=== PATIENT | male | born 1955 | race African-American/Black ===

== ENCOUNTER 2018-08-01 10:37 | Emergency (ER) | payer MEDICARE, OTHER ==
[~2018-08-01] VITALS: Ht 170.2 cm; Wt 84.0 kg
[~2018-08-01 10:37] MED LIST: ASPI-1393 PO; LOSA25TA26 PO
[2018-08-01] MEDS ORDERED: KETOROLAC 60MG/2ML VIAL IM STA (11:32)
[2018-08-01] MEDS ORDERED: CYCLOBENZAPRINE 10MG TABLET PO ONE (11:45)
[2018-08-01 11:47] LABS: BASOPHILS % 0.5 % (0.0-2.0); EOSINOPHILS % 0.8 % (0.0-5.0); HEMATOCRIT. 43.3 % (42.0-52.0); HEMOGLOBIN. 14.8 g/dL (14.0-18.0); LYMPHOCYTES % 18.5 % (20.0-50.0); MEAN CORPUSCULAR HEMOGLOBIN 30.6 pg (28.0-32.0); MEAN CORPUSCULAR VOLUME 89.7 fL (80.0-94.0); MEAN PLATELET VOLUME 6.9 fl (7.4-10.4); MONOCYTES % 6.5 % (2.0-8.0); NEUTROPHILS % 73.7 % (40.0-76.0); PLATELET 245 x1000/uL (130-400); RED BLOOD CELL COUNT 4.83 mill/uL (4.7-6.1); RED CELL DISTRIBUTION WIDTH 15.1 % (11.6-14.6)
[2018-08-01 11:49] LABS: CHLORIDE 99 mEq/L (98-107)
[2018-08-01 13:06] VITALS: BP 119/80
== END 2018-08-01 13:08 | disposition home or self-care (01) ==
LOC: ER 10:37
DX: K64.4 Residual hemorrhoidal skin tags (principal); K62.5 Hemorrhage of anus and rectum; M54.30 Sciatica, unspecified side; E11.9 Type 2 diabetes mellitus without complications; I10 Essential (primary) hypertension; Z98.890 Other specified postprocedural states
CPT/HCPCS: 36415; 80053; 85025; 96372; 99283; J1885

== ENCOUNTER 2020-06-25 03:33 | Inpatient (IN) | payer MEDICARE, OTHER ==
[~2020-06-25] VITALS: Ht 170.2 cm; Wt 83.0 kg
[~2020-06-25 03:33] MED LIST changes: -ASPI-1393 PO; +ASPI-1497 PO
[2020-06-25 04:14] LABS: BASOPHILS % 0.6 % (0.0-2.0); EOSINOPHILS % 0.7 % (0.0-5.0); HEMATOCRIT. 45.8 % (42.0-52.0); HEMOGLOBIN. 15.5 g/dL (14.0-18.0); LYMPHOCYTES % 33.8 % (20.0-50.0); MEAN CORPUSCULAR VOLUME 91.7 fL (80.0-94.0); MONOCYTES % 7.1 % (2.0-8.0); NEUTROPHILS % 57.8 % (40.0-76.0); PLATELET 235 x1000/uL (130-400); RED BLOOD CELL COUNT 4.99 mill/uL (4.7-6.1); RED CELL DISTRIBUTION WIDTH 15.4 % (11.6-14.6)
[2020-06-25 04:16] LABS: CHLORIDE 100 mEq/L (98-107)
[2020-06-25] MEDS ORDERED: POTASSIUM CHLORIDE INJ 40 MEQ in DEXT 5% WATER 250 ML IV ONE (04:45)
[2020-06-25] MEDS: POTASSIUM CHLORIDE 20MEQ TABLET SR PO SCH ×2 (05:09→10:22)
[2020-06-25 09:00] VITALS: BP 134/86
[2020-06-25 10:35] VITALS: BP 134/86
[2020-06-25] MEDS ORDERED: DEXTROSE 50% WATER 50ML SYRINGE IV PRN (10:45)
[2020-06-25] MEDS ORDERED: ACETAMINOPHEN 325MG TABLET PO PRN ×4 (10:45→17:30)
[2020-06-25] MEDS ORDERED: ONDANSETRON HCL 4MG/2ML INJ IV PRN ×2 (10:45→17:30)
[2020-06-25] MEDS ORDERED: CLONIDINE 0.1MG TABLET PO PRN ×2 (10:45→17:30)
[2020-06-25] MEDS ORDERED: DIPHENHYDRAMINE 50MG/ML VIAL IV PRN ×2 (10:45→17:30)
[2020-06-25] MEDS ORDERED: LISI20TA31 PO (11:00)
[2020-06-25] MEDS ORDERED: METF-414 PO (11:00)
[2020-06-25] MEDS ORDERED: GLIP5TAB12 PO (11:00)
[2020-06-25] MEDS ORDERED: HYDR50TA PO (11:00)
[2020-06-25] MEDS ORDERED: AMLO10TA4 PO (11:00)
[2020-06-25] MEDS ORDERED: ATOR10TA PO (11:00)
[2020-06-25] MEDS ORDERED: *PATIENT'S OWN MEDICATION STORAGE XX SCH (11:30)
[2020-06-25 11:53] VITALS: BP 129/82
[2020-06-25] MEDS ORDERED: POTASSIUM CHLORIDE 20MEQ TABLET SR PO ONE ×2 (12:00→17:30)
[2020-06-25] MEDS: BLOOD SUGAR DIAGNOSTIC STRIP TEST SCH ×3 (12:40→21:28)
[2020-06-25] MEDS: INSULIN LISPRO 100 UNITS/ML SUBCUT SCH ×3 (12:44→21:00)
[2020-06-25] MEDS: SODIUM CHLORIDE 0.9% INJ 3ML FLUSH IVF SCH ×2 (14:42→21:29)
[2020-06-25 16:09] VITALS: BP 119/79
[2020-06-25] MEDS ORDERED: MAGNESIUM/ALUMINUM HYDROXIDE/SIMETHICONE 30ML UDC PO PRN (17:30)
[2020-06-25] MEDS ORDERED: GUAIFENESIN 200MG/10ML SUGAR FREE UDC PO PRN (17:30)
[2020-06-25] MEDS ORDERED: POTASSIUM CHLORIDE 20MEQ TABLET SR PO NR (18:00)
[2020-06-25] MEDS: METFORMIN HCL 500MG TABLET PO SCH (18:03)
[2020-06-25 20:00] VITALS: BP 144/89
[2020-06-25] MEDS ORDERED: ZOLPIDEM TARTRATE 5MG TABLET PO PRN (21:00)
[2020-06-25] MEDS ORDERED: ATORVASTATIN CALCIUM 10MG TABLET PO SCH (21:00)
[2020-06-25] MEDS ORDERED: SODIUM CHLORIDE 0.9% INJ 3ML FLUSH IVF SCH (22:00)
[2020-06-26] VITALS: BP 121/81
[2020-06-26 04:00] VITALS: BP 116/80
[2020-06-26] MEDS: INSULIN LISPRO 100 UNITS/ML SUBCUT SCH ×2 (05:42→12:50)
[2020-06-26] MEDS: BLOOD SUGAR DIAGNOSTIC STRIP TEST SCH ×2 (05:42→12:20)
[2020-06-26] MEDS: SODIUM CHLORIDE 0.9% INJ 3ML FLUSH IVF SCH ×2 (05:44→14:27)
[2020-06-26 06:31] LABS: CHLORIDE 107 mEq/L (98-107)
[2020-06-26 08:00] VITALS: BP 122/76
[2020-06-26] MEDS ORDERED: ASPIRIN 81MG EC TABLET PO SCH (09:00)
[2020-06-26] MEDS ORDERED: AMLODIPINE 5MG TABLET PO SCH (09:00)
[2020-06-26] MEDS ORDERED: LISINOPRIL 20MG TABLET PO SCH (09:00)
[2020-06-26] MEDS: POTASSIUM CHLORIDE 20MEQ TABLET SR PO SCH (10:08)
[2020-06-26] MEDS: METFORMIN HCL 500MG TABLET PO SCH (10:08)
[2020-06-26 12:00] VITALS: BP 111/74
== END 2020-06-26 16:06 | disposition home or self-care (01) | DRG 641 ==
LOC: ER 03:33 → ENRESERV 07:46 → 6WST 08:51
PROVIDERS: ADMIT Internal Medicine; ATTEND Internal Medicine
DX: E87.6 Hypokalemia (principal); R00.2 Palpitations; I10 Essential (primary) hypertension; E11.9 Type 2 diabetes mellitus without complications; E78.00 Pure hypercholesterolemia, unspecified
CPT/HCPCS: 36415; 71045; 80048; 80053; 82962; 83036; 83735; 85025; 85379; 93005; 93970; 99285; J1815; J3480; J7060

== ENCOUNTER 2020-07-16 23:15 | Emergency (ER) | payer MEDICARE, OTHER ==
[~2020-07-16] VITALS: Ht 175.3 cm; Wt 87.0 kg
[~2020-07-16 23:15] MED LIST changes: +AMLO10TA4 PO; +ATOR10TA PO; +GLIP5TAB12 PO; +HYDR50TA PO; +LISI20TA31 PO; +METF-414 PO
[2020-07-16 23:58] LABS: BASOPHILS % 0.5 % (0.0-2.0); EOSINOPHILS % 1.7 % (0.0-5.0); HEMATOCRIT. 42.3 % (42.0-52.0); HEMOGLOBIN. 14.4 g/dL (14.0-18.0); LYMPHOCYTES % 24.7 % (20.0-50.0); MEAN CORPUSCULAR HEMOGLOBIN 30.9 pg (28.0-32.0); MEAN CORPUSCULAR VOLUME 90.6 fL (80.0-94.0); MEAN PLATELET VOLUME 6.7 fl (7.4-10.4); MONOCYTES % 8.3 % (2.0-8.0); NEUTROPHILS % 64.8 % (40.0-76.0); PLATELET 231 x1000/uL (130-400); RED BLOOD CELL COUNT 4.66 mill/uL (4.7-6.1); RED CELL DISTRIBUTION WIDTH 15.2 % (11.6-14.6)
[2020-07-17 00:05] LABS: CHLORIDE 101 mEq/L (98-107)
[2020-07-17 01:23] VITALS: BP 102/61
[2020-07-17] MEDS ORDERED: POTASSIUM CHLORIDE 20MEQ/PACKET PO ONE (01:30)
== END 2020-07-17 02:21 | disposition home or self-care (01) ==
LOC: ER 23:25
DX: R00.2 Palpitations (principal); I10 Essential (primary) hypertension; E11.9 Type 2 diabetes mellitus without complications; E78.00 Pure hypercholesterolemia, unspecified; Z79.82 Long term (current) use of aspirin; Z79.84 Long term (current) use of oral hypoglycemic drugs
CPT/HCPCS: 36415; 80048; 85025; 93005; 99284

== ENCOUNTER 2020-10-16 00:13 | Emergency (ER) | payer MEDICARE, OTHER ==
[~2020-10-16] VITALS: Ht 182.9 cm; Wt 77.0 kg
[2020-10-16 02:10] LABS: CHLORIDE 102 mEq/L (98-107)
[2020-10-16 02:28] LABS: BASOPHILS % 0.3 % (0.0-2.0); EOSINOPHILS % 0.7 % (0.0-5.0); HEMATOCRIT. 44.5 % (42.0-52.0); HEMOGLOBIN. 14.9 g/dL (14.0-18.0); LYMPHOCYTES % 23.6 % (20.0-50.0); MEAN CORPUSCULAR HEMOGLOBIN 30.2 pg (28.0-32.0); MEAN PLATELET VOLUME 7.3 fl (7.4-10.4); MONOCYTES % 6.5 % (2.0-8.0); NEUTROPHILS % 68.9 % (40.0-76.0); PLATELET 224 x1000/uL (130-400); RED BLOOD CELL COUNT 4.94 mill/uL (4.7-6.1); RED CELL DISTRIBUTION WIDTH 15.1 % (11.6-14.6)
[2020-10-16] MEDS ORDERED: POTASSIUM CHLORIDE 20MEQ TABLET SR PO ONE (04:30)
[2020-10-16 06:03] VITALS: BP 119/72
== END 2020-10-16 06:03 | disposition home or self-care (01) ==
LOC: ER 00:13
DX: R00.2 Palpitations (principal); R07.89 Other chest pain; E87.6 Hypokalemia; I10 Essential (primary) hypertension; E11.9 Type 2 diabetes mellitus without complications; Z79.84 Long term (current) use of oral hypoglycemic drugs; Z79.82 Long term (current) use of aspirin
CPT/HCPCS: 36415; 71045; 80053; 83880; 84484; 85025; 99284